=== PATIENT | male | born 1970 | race Caucasian/White ===

== ENCOUNTER 2017-05-25 16:36 | Emergency (ER) | payer SELFPAY ==
[~2017-05-25] VITALS: Ht 177.8 cm; Wt 86.2 kg
[2017-05-25] MEDS ORDERED: LIDOCAINE 2% 20 ML (XYLOCAINE) VIAL ONE (16:44)
--- NOTE | 2017-05-25 17:30 | ED Lower Extremity ---
General Chief Complaint: Laceration Stated Complaint: RT LEG LACERATION Source: patient Exam Limitations: no limitations History of Present Illness Time seen by provider: 17:25 Initial Comments To ER with a posterior right thigh laceration. He was at work for [employer]. His boss brings him to ER. Apparently there is a hook on the front of a tractor bucket. Patient backed into this and gouged his right thigh. Tetanus is not up-to-date in the last 5 years. Onset: just prior to arrival Severity: moderate Pain/Injury Location: right thigh Method of Injury: direct blow Constitutional: see HPI EENTM: see HPI Respiratory: no symptoms reported Cardiovascular: no symptoms reported Genitourinary: no symptoms reported Musculoskeletal: see HPI Skin: no symptoms reported Psychiatric/Neurological: No Symptoms Reported Past Undclln-[id number] Hx Patient Social History Alcohol Use: Denies Use Recreational Drug Use: No Smoking Status: Never a Smoker 2nd Hand Smoke Exposure: No Recent Foreign Travel: No Contact w/Someone Who Travel: No Recent Hopitalizations: No Immunizations Up To Date Tetanus Booster (TDap): Unknown Seasonal Allergies Seasonal Allergies: No Surgeries Surgeries: Tonsillectomy Physical Exam Vital Signs Capillary Refill : General Appearance: WD/WN, no apparent distress HEENT: PERRL/EOMI, normal ENT inspection Neck: non-tender, full range of motion Respiratory: no respiratory distress, no accessory muscle use Gastrointestinal: normal bowel sounds, non tender, soft Hips: bilateral hip non-tender, bilateral hip normal inspection, bilateral hip normal range of motion Legs: bilateral leg normal inspection, bilateral leg normal range of motion, bilateral leg no evidence of injury, right leg other (there is an 8 cm laceration to the posterior right thigh without active bleeding. The depth of this extends down into the subcutaneous tissues about 1 cm but it does not extend even to the muscle fascia. Bleeding is easily controlled there is no evidence of vascular injury. Wound was probed with sterile Q-tip to ensure the depth of this did not go beyond subcutaneous tissues and it does not.) Knees: bilateral knee non-tender, bilateral knee normal inspection, bilateral knee normal range of motion Ankles: bilateral ankle non-tender, bilateral ankle normal inspection, bilateral ankle normal range of motion Feet: bilateral foot non-tender, bilateral foot normal inspection, bilateral foot normal range of motion Neurologic/Psychiatric: alert, normal mood/affect, oriented x 3 Skin: normal color, warm/dry Laceration Repair : Wound Location: Lower Extremities Wound Length (cm): 8 Wound's Depth, Shape: sub Q Wound Explored: clean Irrigated w/ Saline (ccs): 1000 Anesthesia: 1% Lidocaine Volume Anesthetic (ccs): 13 Suture: Prolene Suture Size: 4-0 Number of Sutures: 12 Layer Closure?: 1 Number Deep Layer Sutures: 0 Progress Area was anesthetized with 13 mL in total of 2 percent lidocaine without epinephrine. Wound was then scrubbed with chlorhexidine/saline solution and irrigated with 1 L of saline using a splash shield. A [place] drain was then placed in the bed of the wound and the wound edges were sutured using 12 simple interrupted sutures size 4-0 Prolene. There were no deep sutures placed. One suture was placed through the end of the [place] drain suturing it in place. Wound was then covered with gauze and a gauze roll. 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 Choi. Progress/Results/Core Measures Results/Orders Medications Given in ED Current Medications Medications Dose Ordered Sig/Moni Route Start Time Stop Time Status Last Admin Dose Admin Lidocaine HCl 20 ml STK-MED ONCE .ROUTE 05/25/17 16:44 05/25/17 16:51 DC 05/25/17 16:50 20 ML Departure Impression Impression: Primary Impression: Thigh laceration Disposition: 01 HOME, SELF-CARE Condition: Stable Departure-Patient Inst. Decision time for Depature: 17:29 Referrals: NO,LOCAL PHYSICIAN (PCP/Family) Primary Care Physician Patient Instructions: Laceration Repair With Stitches (DC) Add. Discharge Instructions: 1. Keep this clean dry and covered for the next 10 days. You may take the bandage off long enough to shower and let water run over this, but do not soak it in water such as a swimming pool, hot tub or bathtub until the stitches are out 2. Return to the emergency room in 3 days for a wound check just to make sure that this does not look infected. After that, return to the emergency room on , June 01 to have the [place] drain removed and then on Monday the to have the stitches removed 3. Take antibiotics and the pain medication as directed All discharge instructions reviewed with patient and/or family. Voiced understanding. Scripts Hydrocodone/Acetaminophen ([place] 5-325 Tablet) 1 Each Tablet 1 EACH PO Q4H Y for PAIN-MILD TO MODERATE, #10 TAB Prov: SB ELIZONDO APRN 05/25/17 Ondansetron (Zofran Odt) 8 Mg Tab.rapdis 8 MG PO Q6H Y for NAUSEA/VOMITING-1ST LINE, #10 TAB Prov: SB ELIZONDO APRN 05/25/17 Amoxicillin/Potassium Clav (Augmentin 875-125 Tablet) 1 Each Tablet 1 EACH PO BID, #14 TAB Prov: SB ELIZONDO APRN 05/25/17 SB ELIZONDO APRN May 25, 2017 17:30
[2017-05-25] MEDS ORDERED: HYDR-757 PO (17:38)
[2017-05-25] MEDS ORDERED: ONDA8TAB9 PO (17:38)
[2017-05-25] MEDS ORDERED: AMOX-358 PO (17:38)
[2017-05-25] MEDS ORDERED: AUGMENTIN 875 MG TAB (AMOXICILLIN/CLAVULANATE) PO SCH (17:45)
[2017-05-25] MEDS ORDERED: HYDROcodone/APAP 5 MG/325 MG (LORTAB) TAB PO ONE (17:45)
[2017-05-25] MEDS ORDERED: TETANUS,DIPTH,PERTUSS P/F (BOOSTRIX) 0.5 ML VIAL IM ONE (17:45)
[2017-05-25 17:50] VITALS: BP 145/95
== END 2017-05-25 17:50 | disposition home or self-care (01) ==
LOC: ER 16:43
DX: S71.112A Laceration without foreign body, left thigh, initial encounter (principal); W26.9XXA Contact with unspecified sharp object(s), initial encounter
CPT/HCPCS: 12015; 90471; 90715

== ENCOUNTER 2017-05-28 12:30 | Emergency (ER) | payer SELFPAY ==
[~2017-05-28] VITALS: Ht 177.8 cm; Wt 86.2 kg
[~2017-05-28 12:30] MED LIST: AMOX-358 PO; HYDR-757 PO; ONDA8TAB9 PO
--- NOTE | 2017-05-28 13:10 | ED Suture Removal/Wound Check ---
Suture/Wound Re-check Suture Removal/Wound Recheck : Progress 46-year-old male patient presents to the emergency department as instructed on 05/25 by Carroll Polo APRN for wound check. Patient denies fevers, chills, purulent drainage. Physical Exam Vital Signs Vital Sign - Last 12Hours 05/28/17 05/28/17 12:45 13:29 Temp 98.0 Pulse 85 Resp 18 B/P (MAP) 128/96 Pulse Ox 99 Capillary Refill : General Appearance: WD/WN, no apparent distress Cardiovascular: normal peripheral pulses, no edema Skin: warm/dry, ecchymosis (subacute ecchymosis surrounding the laceration of the right posterior thigh. No active bleeding noted.), other (sutures intact of the right posterior thigh. Soft tissue tenderness noted. No evidence of erythema or warmth. No evidence of purulent drainage. Small amount of serosanguineous drainage noted from the drain site.) Skin Problem Location: lower extremities (right posterior thigh) Skin Problem Character: tenderness, other (sutures intact of the right posterior thigh. Soft tissue tenderness noted. No evidence of erythema or warmth. No evidence of purulent drainage. Small amount of serosanguineous drainage noted from the drain site. subacute ecchymosis surrounding the laceration of the right posterior thigh. No active bleeding noted.) Departure Communication Progress Notes Patient seen and evaluated. Patient to continue medications prescribed by Carroll Polo APRN on 05/25. Impression Impression: Primary Impression: Encounter for wound re-check Disposition: 01 HOME, SELF-CARE Condition: Improved Departure-Patient Inst. Decision time for Depature: 13:07 Referrals: NO,LOCAL PHYSICIAN (PCP/Family) Primary Care Physician Patient Instructions: Wound Care (DC) Add. Discharge Instructions: All discharge instructions reviewed with patient and/or family. Voiced understanding. Continue current medications. Continue orders as instructed by Carroll Polo APRN in the emergency department. Shower with antibacterial soap. Follow-up with your family practitioner if needed. Return to the emergency department for increased pain, redness, drainage, fever, or any other concerns. PHILL GREEN May 28, 2017 13:10
[2017-05-28 13:29] VITALS: BP 128/96
== END 2017-05-28 13:29 | disposition home or self-care (01) ==
LOC: EDUNIT# 12:30 → ER 12:32
DX: S71.112D Laceration without foreign body, left thigh, subsequent encounter (principal); X58.XXXD Exposure to other specified factors, subsequent encounter

== ENCOUNTER 2017-06-01 07:46 | Emergency (ER) | payer SELFPAY ==
[~2017-06-01] VITALS: Ht 177.8 cm; Wt 86.2 kg
--- NOTE | 2017-06-01 08:13 | ED Suture Removal/Wound Check ---
Suture/Wound Re-check Suture Removal/Wound Recheck : Progress Patient presents for evaluation of wound on the posterior right thigh and removal of [place] drain. Wound demonstrates good healing with localized inflammatory changes as anticipated. Drain has scant amount of serosanguineous drainage. Patient has no complaints. He was instructed to have the drain removed today and the sutures removed in 3 days. The lateral most suture holding the [place] drain was removed. The drain was easily removed. There is scant drainage of serosanguineous fluid. Wound was covered and hair was trimmed around the wound. Hair was removed with adhesive tape. Wound was then dressed with a nonstick dressing. This was a no charge wound follow-up. General Appearance: WD/WN, no apparent distress Skin Exam: warm/dry, ecchymosis, other (There is ecchymosis and erythema with good healing of the laceration observed. 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 Decision time for Depature: 08:00 Referrals: NO,LOCAL PHYSICIAN (PCP/Family) Primary Care Physician Patient Instructions: SUTURE CHECK-NO COMPLICATION Add. Discharge Instructions: Keep the wound clean and dry except for normal showering. Do not submerge until sutures are removed. Return on Monday or Monday for suture removal. Continue to monitor for signs of infection such as increasing redness, increasing swelling, increasing pain, puslike drainage, or fever. Return to care if you notice these symptoms. Continue to keep the wound covered especially when working in dirty environments. You may leave the wound open to air when it stops draining except in environments where it may become soiled. Complete your antibiotics as prescribed. JAYY HIDALGO MD Jun 01, 2017 08:13
[2017-06-01 08:18] VITALS: BP 112/67
== END 2017-06-01 08:18 | disposition home or self-care (01) ==
LOC: EDUNIT# 07:46 → ER 07:48
DX: S71.111D Laceration without foreign body, right thigh, subsequent encounter (principal)

== ENCOUNTER 2017-06-05 08:16 | Emergency (ER) | payer SELFPAY ==
[~2017-06-05] VITALS: Ht 177.8 cm; Wt 86.2 kg
[2017-06-05 08:31] VITALS: BP 127/82
== END 2017-06-05 08:30 | disposition home or self-care (01) ==
LOC: EDUNIT# 08:16 → ER 08:18
DX: S71.112D Laceration without foreign body, left thigh, subsequent encounter (principal); X58.XXXD Exposure to other specified factors, subsequent encounter